=== PATIENT | female | born 1970 | race Caucasian/White ===

== ENCOUNTER 2019-02-23 09:45 | Emergency (ER) | payer OTHER ==
[~2019-02-23] VITALS: Ht 162.6 cm; Wt 92.1 kg
[2019-02-23] MEDS ORDERED: SYMBICORT160 MCG/4. INH (10:11)
[2019-02-23] MEDS ORDERED: CEFUROXIME500 MG PO (10:11)
[2019-02-23] MEDS ORDERED: PROAIR HFA8.5 GM INH (10:11)
[2019-02-23] MEDS ORDERED: DESYREL150 MG PO (10:12)
[2019-02-23] MEDS ORDERED: LINZESS72 MCG PO (10:12)
[2019-02-23] MEDS ORDERED: VENLAFAXINE HCL25 MG PO (10:12)
[2019-02-23 11:24] LABS: HEMATOCRIT 41.8 % (37.0-47.0); HEMOGLOBIN 13.9 gm/dL (12.0-15.0); MCH 29.2 pg (26.0-34.0); MCHC 33.1 g/dL (28.0-37.0); MCV 88.2 fL (80.0-100.0); MPV 7.8 fl. (7.2-11.1); NUCLEATED RBCS 0 /100WBC; PLATELET COUNT* 407 thou/uL (150-400); RBC 4.74 mil/uL (4.20-5.00); RDW-CV 15.1 % (10.5-14.5); WBC 13.2 thou/uL (4.0-11.0)
[2019-02-23 11:43] LABS: CREATININE 0.9 mg/dL (0.6-1.3)
[2019-02-23 11:55] LABS: ALBUMIN 3.7 g/dL (3.4-5.0); TOTAL BILIRUBIN 0.3 mg/dL (<0.1-1.0); TOTAL PROTEIN 7.7 g/dL (6.4-8.2)
[2019-02-23 11:56] LABS: ABSOLUTE EOSINOPHILS 0.4 thou/uL (0.0-0.7); ABSOLUTE LYMPHOCYTES 0.8 thou/uL (0.8-5.3); ABSOLUTE MONOCYTES 11.7 thou/uL (0.0-1.2); ABSOLUTE NEUTROPHILS 0.3 thou/uL (1.6-8.1); PLATELET ESTIMATE ADEQUATE
[2019-02-23] MEDS ORDERED: PROMETHAZINE V120 ML PO (12:04)
[2019-02-23] MEDS ORDERED: TESSALON PERLE100 MG PO (12:04)
[2019-02-23 12:21] VITALS: BP 150/80
== END 2019-02-23 12:22 | disposition home or self-care (01) ==
LOC: M.ERS 09:45
PROVIDERS: Physician Assistant
DX: J20.9 Acute bronchitis, unspecified (principal); D72.821 Monocytosis (symptomatic)

== ENCOUNTER 2019-03-05 16:02 | Emergency (ER) | payer OTHER ==
[~2019-03-05] VITALS: Ht 162.6 cm; Wt 92.1 kg
[~2019-03-05 16:02] MED LIST: CEFUROXIME500 MG PO; DESYREL150 MG PO; LINZESS72 MCG PO; PROAIR HFA8.5 GM INH; PROMETHAZINE V120 ML PO; SYMBICORT160 MCG/4. INH; TESSALON PERLE100 MG PO; VENLAFAXINE HCL25 MG PO
[2019-03-05 17:03] LABS: CALCIUM 8.8 mg/dL (8.5-10.1); CREATININE 0.9 mg/dL (0.6-1.3); POTASSIUM 4.3 mmol/L (3.5-5.1)
[2019-03-05] MEDS ORDERED: PREDNISONE 20 M20 MG PO (17:11)
[2019-03-05] MEDS ORDERED: ZPAK PO (17:11)
[2019-03-05] MEDS ORDERED: CEFDINIR300 MG PO (17:11)
[2019-03-05 17:26] VITALS: BP 149/96
--- NOTE | 2019-03-07 10:48 | EKG ---
[place] [address] ELECTROCARDIOGRAM REPORT Name: JEOVANY FLORES Room: 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
== END 2019-03-05 17:27 | disposition home or self-care (01) ==
LOC: M.ERS 16:02
PROVIDERS: Nurse Practitioner Family
DX: I10 Essential (primary) hypertension (principal); J18.9 Pneumonia, unspecified organism

== ENCOUNTER 2019-04-03 15:38 | Inpatient (IN) | payer OTHER ==
[~2019-04-03] VITALS: Ht 162.6 cm; Wt 92.1 kg
[~2019-04-03 15:38] MED LIST changes: +CEFDINIR300 MG PO; +PREDNISONE 20 M20 MG PO; +VENLAFAXINE HC150 MG PO; -VENLAFAXINE HCL25 MG PO; +ZPAK PO
[2019-04-03 15:52] VITALS: BP 140/105
[2019-04-03] MEDS ORDERED: ATIVAN0.5 M1 PO (15:56)
[2019-04-03 16:30] LABS: INFLUENZA A ANTIGEN Negative (Negative); INFLUENZA B ANTIGEN Negative (Negative)
[2019-04-03 19:52] LABS: ABSOLUTE BASOPHILS 0.1 thou/uL (0.0-0.2); ABSOLUTE EOSINOPHILS 0.2 thou/uL (0.0-0.7); ABSOLUTE LYMPHOCYTES 2.2 thou/uL (0.8-5.3); ABSOLUTE MONOCYTES 0.8 thou/uL (0.0-1.2); ABSOLUTE NEUTROPHILS 8.5 thou/uL (1.6-8.1); BASOPHILS 1.1 %; EOSINOPHILS 1.3 %; HEMATOCRIT 40.2 % (37.0-47.0); HEMOGLOBIN 13.5 gm/dL (12.0-15.0); LYMPHOCYTES 18.8 %; MCH 29.4 pg (26.0-34.0); MCHC 33.6 g/dL (28.0-37.0); MCV 87.7 fL (80.0-100.0); MONOCYTES 6.8 %; MPV 7.6 fl. (7.2-11.1); NUCLEATED RBCS 0 /100WBC; PLATELET COUNT* 346 thou/uL (150-400); RBC 4.58 mil/uL (4.20-5.00); RDW-CV 15.2 % (10.5-14.5); WBC 11.8 thou/uL (4.0-11.0)
[2019-04-03 20:15] LABS: CALCIUM 8.1 mg/dL (8.5-10.1); CREATININE 0.9 mg/dL (0.6-1.3); POTASSIUM 3.7 mmol/L (3.5-5.1); TOTAL BILIRUBIN 0.5 mg/dL (<0.1-1.0)
[2019-04-03 20:16] LABS: ALBUMIN 3.2 g/dL (3.4-5.0); TOTAL PROTEIN 6.8 g/dL (6.4-8.2)
[2019-04-04 01:10] VITALS: BP 111/63
[2019-04-04 05:15] VITALS: BP 129/84
[2019-04-04 08:12] VITALS: BP 129/84
[2019-04-04 08:30] VITALS: BP 139/83
[2019-04-04] MEDS ORDERED: TRULANCE3 MG PO (12:08)
[2019-04-04] MEDS ORDERED: LISINOPRIL2.5 MG PO (12:08)
[2019-04-04] MEDS ORDERED: PROAIR HFA8.5 GM INH (12:09)
[2019-04-04] MEDS ORDERED: DOXYCYCLINE PO (12:09)
[2019-04-04] MEDS ORDERED: DUONEB INH (12:10)
--- NOTE | 2019-04-04 14:15 | EKG ---
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
[2019-04-04] MEDS ORDERED: RAYOS5 MG PO (17:11)
[2019-04-04] MEDS ORDERED: CEFDINIR300 MG PO (17:11)
[2019-04-04 17:18] VITALS: BP 134/74
== END 2019-04-04 17:50 | disposition home or self-care (01) | DRG 191 ==
LOC: M.ERS 15:38 → M.TBA-ER 21:40 → M.3W 21:40
PROVIDERS: Nurse Practitioner Family; Physician Assistant; ADMIT Internal Medicine
DX: J44.1 Chronic obstructive pulmonary disease with (acute) exacerbation (principal); R65.10 Systemic inflammatory response syndrome (SIRS) of non-infectious origin without acute organ dysfunction; E44.1 Mild protein-calorie malnutrition; I11.0 Hypertensive heart disease with heart failure; F17.210 Nicotine dependence, cigarettes, uncomplicated; F41.9 Anxiety disorder, unspecified; I50.9 Heart failure, unspecified; Z68.34 Body mass index [BMI] 34.0-34.9, adult; Z79.899 Other long term (current) drug therapy

== ENCOUNTER → 2019-06-28 | Outpatient (CLI) | payer OTHER ==
[~2019-06-28] MED LIST changes: +ATIVAN0.5 M1 PO; +DOXYCYCLINE PO; +DUONEB INH; +LISINOPRIL2.5 MG PO; +RAYOS5 MG PO; +TRULANCE3 MG PO
[2019-06-30 12:07] LABS: GLOBULIN TOTAL 3.8 g/dL (2.2-3.9); M-SPIKE Not Observed g/dL (Not Observed)
== END ==
LOC: M.LAB 12:58
PROVIDERS: Internal Medicine
DX: J18.9 Pneumonia, unspecified organism (principal); I10 Essential (primary) hypertension; R06.2 Wheezing; R06.02 Shortness of breath; F41.9 Anxiety disorder, unspecified; F32.9 Major depressive disorder, single episode, unspecified

== ENCOUNTER → 2019-07-05 | Outpatient (CLI) | payer OTHER | LOC: M.LAB 14:17 | DX: E03.9 Hypothyroidism, unspecified (principal); J18.9 Pneumonia, unspecified organism; I10 Essential (primary) hypertension; R91.8 Other nonspecific abnormal finding of lung field ==

== ENCOUNTER → 2019-07-26 | Outpatient (CLI) | payer OTHER ==
[2019-07-26 17:10] LABS: ABSOLUTE BASOPHILS 0.1 thou/uL (0.0-0.2); ABSOLUTE EOSINOPHILS 0.1 thou/uL (0.0-0.7); ABSOLUTE LYMPHOCYTES 2.3 thou/uL (0.8-5.3); ABSOLUTE MONOCYTES 0.9 thou/uL (0.0-1.2); ABSOLUTE NEUTROPHILS 6.8 thou/uL (1.6-8.1); BASOPHILS 0.8 %; EOSINOPHILS 0.9 %; HEMATOCRIT 38.4 % (37.0-47.0); HEMOGLOBIN 13.1 gm/dL (12.0-15.0); LYMPHOCYTES 22.5 %; MCH 29.5 pg (26.0-34.0); MCHC 34.1 g/dL (28.0-37.0); MCV 86.5 fL (80.0-100.0); MONOCYTES 9.3 %; MPV 7.4 fl. (7.2-11.1); NUCLEATED RBCS 0 /100WBC; PLATELET COUNT* 508 thou/uL (150-400); POLYS 66.5 %; RBC 4.44 mil/uL (4.20-5.00); RDW-CV 14.7 % (10.5-14.5); WBC 10.2 thou/uL (4.0-11.0)
[2019-07-26 17:23] LABS: ALBUMIN 3.9 g/dL (3.4-5.0); CREATININE 1.1 mg/dL (0.6-1.3); DIRECT BILIRUBIN 0.1 mg/dL (<0.1-0.3); POTASSIUM 3.3 mmol/L (3.5-5.1); TOTAL BILIRUBIN 0.2 mg/dL (<0.1-1.0); TOTAL PROTEIN 8.3 g/dL (6.4-8.2)
[2019-07-26 17:56] LABS: % SATURATION 14 % (20-39); IRON 54 ug/dL (50-175)
[2019-07-26 18:02] LABS: ESR (SEDRATE) 28 mm/hr (0-30)
== END ==
LOC: M.LAB 16:21
PROVIDERS: Internal Medicine Hematology & Oncology
DX: D64.9 Anemia, unspecified (principal); I50.22 Chronic systolic (congestive) heart failure; I11.0 Hypertensive heart disease with heart failure; J18.9 Pneumonia, unspecified organism; F41.9 Anxiety disorder, unspecified; F32.9 Major depressive disorder, single episode, unspecified